=== PATIENT | male | born 1985 | race Caucasian/White ===

== ENCOUNTER 2018-04-15 10:01 | Day surgery (SDC) | payer MEDICAID ==
[2018-04-09 10:09] VITALS: BMI 22.8
[2018-04-15] MEDS ORDERED: Midazolam 2 MG/2 ML VIAL ONE (11:43)
[2018-04-15] MEDS ORDERED: Propofol 10 mg/ml Inj (20 ML) ONE ×2 (11:43→12:13)
[2018-04-15] MEDS ORDERED: Lidocaine/Epinephrine 1% 1:100000 10 ML IJ ONE (12:13)
[2018-04-15] MEDS ORDERED: Bupivacaine 0.25% 20 ML INJ IJ ONE (12:13)
[2018-04-15] MEDS ORDERED: ceFAZolin IV 1 gm in Dextrose 1 GM/50 ML BAG IVPB ONE (12:13)
[2018-04-15] MEDS ORDERED: HYDROmorphone 0.5 mg/0.5 ml ISec IVP PRN (13:28)
--- NOTE | 2018-04-15 13:38 | PCM.SURG1 ---
Surgeon's Initial Post Op Note - Surgeon's Notes Surgeon: Luis Castings Drafter: Itzel PGY4 Type of Anesthesia: General LMA Pre-Operative Diagnosis: R axillary sebaceous cyst Operative Findings: 1 sebaceous cyst and 1 mass Post-Operative Diagnosis: axillary sebaceous cyst and mass Operation Performed: excision of mass and cyst Specimen/Specimens Removed: mass and cyst Estimated Blood Loss: EBL {In ML}: 20 Blood Products Given: N/A Drains Used: John Vilchis Post-Op Condition: Good Date of Surgery/Procedure: 04/15/18 Time of Surgery/Procedure: 13:38
[2018-04-15 15:40] VITALS: RESP 16
[2018-04-15 15:44] VITALS: TEMP 97.7
[2018-04-15 16:43] VITALS: BP 119/64; PULSE 62; O2SAT 97
--- NOTE | 2018-04-16 01:16 | OP ---
PROCEDURE DATE: 04/15/2018 PREOPERATIVE DIAGNOSES: 1. Large sebaceous cyst of right axilla. 2. Small sebaceous cyst of the posterior right axillary area. POSTOPERATIVE DIAGNOSES: 1. Hidradenitis of right axillary area, approximately 5 x 6 cm size. 2. Sebaceous cyst of the posterior axillary area on right side, 2 x 2 cm size. PROCEDURES DONE: 1. Right local excision of hidradenitis of right axillary area. 2. Excision of the sebaceous cyst of the right posterior axillary area 2 x 2 cm size. 3. Excision of the redundant skin of the right axilla. SURGEON: Nghia Smith MD SITE DAMAGE PREVENTION TECHNICIAN: Gomez Robbins DO, PGY-4 resident. ANESTHESIA: General endotracheal tube anesthesia. ESTIMATED BLOOD LOSS: Around 30 mL. DRAINS: 7-[place] CECILY drain was placed. COMPLICATIONS: None. PATHOLOGY: 1. Hidradenitis of right axillary area. 2. Sebaceous cyst of the right axillary area. 3. Redundant excised infected skin. INTRAOPERATIVE FINDINGS: The patient had approximately 5 x 6 cm thickened right axillary area as well as 2 x 2 cm posterior right axillary area sebaceous cyst, and the patient had redundant thickened infected skin that was also excised. DESCRIPTION OF PROCEDURE: On intraoperative steps, this is a 33-year-old male, who was diagnosed with possible sebaceous cyst of the right axilla, possible hidradenitis, and the patient had at two different areas, and the patient was consented for the excision of the sebaceous cyst of the right axillary area as well as a small sebaceous cyst excision, brought to the OR, placed supine on the operating table. After induction of the anesthesia, the right axilla and chest were prepped and draped in the usual sterile fashion. An elliptical incision was made surrounding the large axillary cyst area. After incising the skin and subcutaneous tissue, it was realized that the patient has a hidradenitis and then now the hidradenitis area was completely excised. The patient also had redundant skin that was infected on the surrounding areas as well as a thickened skin. The surrounding skin area was excised on both sides and it was sent off the table for the pathology. The hemostasis was achieved and the patient had sebaceous cyst of the right posterior axillary area of approximately 2 x 2 cm size that was excised after an elliptical incision. The cyst was completely excised and it was sent off the table for the pathology. Hemostasis was achieved. Due to the wide excision area, the upper and lower medial and lateral flap was created, CECILY drain was placed; and the wound was closed in 2 layers; the subcu with 2-0, 3-0 Vicryl; and the skin with 3-0 nylon interrupted suture. The sebaceous cyst area was also closed with 2-0 Vicryl and the skin with 3-0 nylon interrupted suture and dry sterile dressing was applied. The patient tolerated the procedure well. Count of instruments and gauze was correct. There was no apparent complication. The patient was extubated in the OR and sent to the postanesthesia care unit in stable condition. Nghia Smith MD IVAN
== END 2018-04-15 16:30 | disposition home or self-care (01) ==
LOC: C.SDS 10:01
PROVIDERS: ATTEND Surgery Surgical Critical Care
DX: L72.3 Sebaceous cyst (principal); L73.9 Follicular disorder, unspecified; L72.0 Epidermal cyst; L73.2 Hidradenitis suppurativa
CPT/HCPCS: 11402; 11450; 88305; J0690; J1100; J1170; J1885; J2001; J2250; J2405; J2704; J3010

== ENCOUNTER 2018-04-17 08:37 | Emergency (ER) | payer MEDICAID ==
[2018-04-17 08:37] VITALS: BMI 22.8
[2018-04-17 08:52] VITALS: O2SAT 98
[2018-04-17] MEDS ORDERED: Sodium Chloride 0.9% 1,000 ML IV ONE (09:13)
[2018-04-17] MEDS ORDERED: Sodium Chloride 0.9% 1,000 ML ONE (09:26)
[2018-04-17 09:28] LABS: BASO # 0.1 K/uL (0.0-0.2); BASO % 0.6 % (0.0-2.0); EOS # 0.1 K/uL (0.0-0.7); HEMOGLOBIN 13.8 g/dL (12.0-18.0); LYMPH # 7.3 K/uL (1.0-4.3); LYMPH % 52.6 % (20.0-40.0); MEAN CELL VOLUME 98.2 fL (80.0-94.0); MEAN CORPUSCULAR HEMOGLOBIN 33.1 pg (27.0-31.0); MEAN CORPUSCULAR HGB CONC 33.7 g/dL (33.0-37.0); MEAN PLATELET VOLUME 7.6 fL (7.2-11.7); MONO # 0.9 K/uL (0.0-0.8); MONO % 6.5 % (0.0-10.0); NEUT # 5.4 K/uL (1.8-7.0); NEUT % 39.3 % (50.0-75.0); RBC 4.18 Mil/uL (4.40-5.90); RED CELL DISTRIBUTION WIDTH 13.7 % (11.5-14.5); WHITE BLOOD COUNT 13.8 K/uL (4.8-10.8)
--- NOTE | 2018-04-17 09:44 | C.PDOC ---
History Of Present Illness 33 y/o male presents to the ER complaining of nausea, vomiting, and headache which began when he woke up this morning. Patient states that he had a sebaceous cyst of the right axilla removed by Dr. Chavez on 04/15/18. He was discharged with Percocet and Augmentin. He notes that he only take 1 tablet of Percocet last night, he has not previously used this medication. Patient denies fever, chills, chest pain, SOB, abdominal pain or other complaints at this time. Time Seen by Provider: 04/17/18 08:49 Chief Complaint (Nursing): Fever History Per: Patient History/Exam Limitations: no limitations Onset/Duration Of Symptoms: Hrs Current Symptoms Are (Timing): Still Present Associated Symptoms: Nausea, Vomiting Severity: Moderate Past Medical History Reviewed: Historical Data, Nursing Documentation, Vital Signs Vital Signs: Last Vital Signs Temp 98.5 F 04/17/18 10:39 Pulse 64 04/17/18 10:39 Resp 18 04/17/18 10:39 BP 113/65 04/17/18 10:39 Pulse Ox 98 04/17/18 11:18 - Medical History PMH: No Chronic Diseases Other Surgeries: Hx of surgeries - [facility] Procedures OTHER SKIN & SUBQ I D (02/24/14) Family History: States: No Known Family Hx - Social History Hx Tobacco Use: Yes Hx Alcohol Use: No Hx Substance Use: Yes - Immunization History Hx Tetanus Toxoid Vaccination: No Hx Influenza Vaccination: No Hx Pneumococcal Vaccination: No Review Of Systems Constitutional: Negative for: Fever, Chills Cardiovascular: Negative for: Chest Pain Respiratory: Negative for: Cough, Shortness of Breath Gastrointestinal: Positive for: Nausea, Vomiting. Negative for: Abdominal Pain , Diarrhea Neurological: Positive for: Headache. Negative for: Weakness, Numbness, Incoordination, Altered Mental Status, Dizziness Physical Exam - Physical Exam Appears: Well, Non-toxic, Other (mildly uncomfortable) Skin: Normal Color, Warm, Dry, No Rash Head: Normacephalic Eye(s): bilateral: Normal Inspection Oral Mucosa: Moist Neck: Supple Cardiovascular: Rhythm Regular Respiratory: Normal Breath Sounds, No Rales, No Rhonchi, No Wheezing Gastrointestinal/Abdominal: Normal Exam, Bowel Sounds, Soft, No Tenderness Extremity: Other (right axilla- surgical dressing in place, and CECILY drain present with serosanguineous fluid inside, no purulence) Neurological/Psych: Oriented x3 Gait: Steady ED Course And Treatment - Laboratory Results Result Diagrams: 04/17/18 09:22 04/17/18 09:22 O2 Sat by Pulse Oximetry: 98 (RA) Pulse Ox Interpretation: Normal Progress Note: Blood work ordered and reviewed. Patient given IV Zofran, IV pepcid, IV toradol and IV NS bolus. 10:15- Surgery resident aware and will come down and evaluate patient. Reevaluation Time: 11:15 Reassessment Condition: Improved (On reassessment, patient is resting comfortably and states he feels much better. Symptoms likely a Percocet side effect. Patient instructed to continue his Augmentin (take with food) and to use tylenol/motrin as needed for pain unless pain is severe. He was instructed to follow up with his surgeon as scheduled, and understands he should return to ED if symptoms return/worsen.) - Physician Consult Information Physician Contacted: Gomez Robbins Outcome Of Conversation: Patient evaluated in ED by surgery resident, ok to d/c. Disposition Counseled Patient/Family Regarding: Studies Performed, Diagnosis, Need For Followup, Rx Given - Disposition Referrals: Nghia Smith MD [Staff Provider] - Cheryl Cagle MD [Staff Provider] - Disposition: HOME/ ROUTINE Disposition Time: 11:15 Condition: STABLE Additional Instructions: FOLLOW UP WITH YOUR SURGEON SCHEDULED CONTINUE ANTIBIOTICS UNTIL FINISHED USE IBUPROFEN OR TYLENOL NEEDED FOR PAIN RETURN TO ER IF YOU HAVE ANY CONCERNING SYMPTOMS Instructions: Adverse Drug Reactions, Adult (DC) Forms: [employer] (Iraqi) Print Language: PANAMANIAN - Clinical Impression Clinical Impression: Nausea, Headache, Medication side effect - Scribe Statement The provider has reviewed the documentation as recorded by the Orly Boogie Provider Attestation: All medical record entries made by the Scribe were at my direction and personally dictated by me. I have reviewed the chart and agree that the record accurately reflects my personal performance of the history, physical exam, medical decision making, and the department course for this patient. I have also personally directed, reviewed, and agree with the discharge instructions and disposition.
[2018-04-17 09:47] LABS: ALB/GLOB RATIO 1.4 (1.0-2.1); ALBUMIN 3.9 g/dL (3.5-5.0); ALT/SGPT 27 U/L (21-72); AST/SGOT 22 U/L (17-59); BLOOD UREA NITROGEN 9 mg/dL (9-20); GFR AFRICAN-AMERICAN > 60; GFR NON-AFRICAN AMERICAN > 60
[2018-04-17 10:41] VITALS: BP 113/65; PULSE 64; RESP 18; TEMP 98.5
--- NOTE | 2018-04-23 21:52 | CP.PCM.CON ---
<Gomez Robbins - Last Filed: 04/23/18 22:00> History of Present Illness - History of Present Illness History of Present Illness: Surgery: Dr. Smith CC: Wound check HPI: 33M w. recent sebaceous cyst excision of 04/15 presented to ED after taking percocet for pain and becoming ill. Pt had N/V denies F/C. Surgery was paged to assess surgical site. PMH: none PSH: R axilla sebaceous cyst excision Meds: MAR reviewed NKDA Social: +tobacco, no ETOH, no drugs Fhx: non-contributory Review of Systems - Review of Systems All systems: reviewed and no additional remarkable complaints except (HPI) Past Patient History - Past Medical History & Family History Past Medical History?: No - Past Social History Smoking Status: Light Smoker < 10 Cigarettes Daily - PULMONARY Hx Respiratory Disorders: No - NEUROLOGICAL Hx Neurological Disorder: No - HEENT Hx HEENT Problems: No - RENAL Hx Chronic Kidney Disease: No - ENDOCRINE/METABOLIC Hx Endocrine Disorders: No - HEMATOLOGICAL/ONCOLOGICAL Hx Blood Disorders: No - INTEGUMENTARY Hx Dermatological Problems: Yes Other/Comment: cyst right axilla - MUSCULOSKELETAL/RHEUMATOLOGICAL Hx Musculoskeletal Disorders: No - GASTROINTESTINAL Hx Gastrointestinal Disorders: No - GENITOURINARY/GYNECOLOGICAL Hx Genitourinary Disorders: No - PSYCHIATRIC Hx Substance Use: Yes - SURGICAL HISTORY Hx Surgeries: Yes Other/Comment: right axilla I&D - ANESTHESIA Hx Anesthesia: No Hx Anesthesia Reactions: No Hx Malignant Hyperthermia: No Meds Allergies/Adverse Reactions: Allergies Allergy/AdvReac Type Severity Reaction Status Date / Time No Known Allergies Allergy Verified 04/23/18 12:11 Physical Exam - Constitutional Appears: Non-toxic, No Acute Distress - Head Exam Head Exam: ATRAUMATIC, NORMOCEPHALIC - Eye Exam Eye Exam: EOMI - ENT Exam ENT Exam: Mucous Membranes Moist - Neck Exam Neck exam: Positive for: Full Rom. Negative for: Lymphadenopathy - Respiratory Exam Respiratory Exam: NORMAL BREATHING PATTERN. absent: Accessory Muscle Use, Respiratory Distress - GI/Abdominal Exam GI & Abdominal Exam: Soft. absent: Tenderness - Extremities Exam Additional comments: R axilla drain in place, scant serosang drainage, incision C/D/I - Neurological Exam Neurological exam: Alert, Oriented x3 Results - Vital Signs Recent Vital Signs: Last Vital Signs Temp 98.5 F 04/17/18 10:39 Pulse 64 04/17/18 10:39 Resp 18 04/17/18 10:39 BP 113/65 04/17/18 10:39 Pulse Ox 98 04/20/18 18:03 - Labs Result Diagrams: 04/17/18 09:22 04/17/18 09:22 Assessment & Plan - Assessment and Plan (Free Text) Assessment: 33M s/p removal of R axilla sebcaeous cyst 04/15 for follow up -Wound healing well -No interventions needed at this time -Pt to follow up with Dr. Smith -d/w attending Itzel PGY4 <Nghia Smith - Last Filed: 04/24/18 16:55> Results - Vital Signs Recent Vital Signs: Last Vital Signs Temp 98.5 F 04/17/18 10:39 Pulse 64 04/17/18 10:39 Resp 18 04/17/18 10:39 BP 113/65 04/17/18 10:39 Pulse Ox 98 04/20/18 18:03 - Labs Result Diagrams: 04/17/18 09:22 04/17/18 09:22 Attending/Attestation - Attestation I have personally seen and examined this patient.: Yes I have fully participated in the care of the patient.: Yes I have reviewed all pertinent clinical information: Yes Notes (Text): Pt was seen and examined at bedside Agree with above note and assessment Pt with need CECILY drain removal Po analgesics f.u in office c.w antibiotics Local wound care Plan d.w pt in detail Risk and benefit explained in detail.
== END 2018-04-17 11:32 | disposition home or self-care (01) ==
LOC: C.ER 08:37
DX: R11.2 Nausea with vomiting, unspecified (principal); R51 Headache; T40.2X5A Adverse effect of other opioids, initial encounter
CPT/HCPCS: 80053; 82948; 85025; 96361; 96374; 96375; 99285; J1885; J2405; J7030

== ENCOUNTER 2018-04-23 11:46 | Emergency (ER) | payer MEDICAID ==
[2018-04-23 11:46] VITALS: BMI 22.8
[2018-04-23 12:11] VITALS: BP 126/83; PULSE 86; RESP 18; TEMP 99.7; O2SAT 98
--- NOTE | 2018-04-23 13:25 | C.PDOC ---
History Of Present Illness 33 y/o M p/w axillary CECILY drain in place, requesting it to be removed. Patient had abscess that had been drained there under Dr. Dueñas, never had it removed. Denies fever, chills, significant pain but it is uncomfortable. Time Seen by Provider: 04/23/18 12:03 Chief Complaint (Nursing): Wound Check Past Medical History Vital Signs: Last Vital Signs Temp 99.7 F H 04/23/18 12:04 Pulse 86 04/23/18 12:04 Resp 18 04/23/18 12:04 BP 126/83 04/23/18 12:04 Pulse Ox 98 04/23/18 13:25 - Medical History PMH: Denies: Chronic Kidney Disease - [facility] Procedures OTHER SKIN & SUBQ I D (02/24/14) Family History: States: No Known Family Hx - Social History Hx Tobacco Use: Yes Hx Alcohol Use: No Hx Substance Use: No - Immunization History Hx Tetanus Toxoid Vaccination: No Hx Influenza Vaccination: No Hx Pneumococcal Vaccination: No Review Of Systems Except As Marked, All Systems Reviewed And Found Negative. Constitutional: Negative for: Fever Cardiovascular: Negative for: Chest Pain Physical Exam - Physical Exam Additional Physical Exam Comments: Gen: NAD Head: NC/AT Eyes: PERRL ENT: MMM Neck: Supple Chest: No tenderness CV: Regular rate Lungs: CTA b/l Abd: Soft, NT Back: No CVA tenderness Extremities: No edema Skin: Axillary CECILY drain in place without discharge or erythema Neuro: Alert, no focal deficit ED Course And Treatment O2 Sat by Pulse Oximetry: 98 Medical Decision Making Medical Decision Making: Drain removed by residential concierge. Follow up with Dr. Smith. Disposition - Disposition Referrals: Nghia Smith MD [Staff Provider] - Disposition: HOME/ ROUTINE Disposition Time: 13:25 Condition: STABLE Instructions: Wound Care Forms: [employer] (Albanian) - Clinical Impression Clinical Impression: John leblanc drain site pain
== END 2018-04-23 13:31 | disposition home or self-care (01) ==
LOC: C.ER 11:46
DX: T85.848A Pain due to other internal prosthetic devices, implants and grafts, initial encounter (principal); Y84.8 Other medical procedures as the cause of abnormal reaction of the patient, or of later complication, without mention of misadventure at the time of the procedure; Y92.89 Other specified places as the place of occurrence of the external cause

== ENCOUNTER 2018-10-10 14:20 | Outpatient (CLI) | payer MEDICAID | END 2018-10-10 14:21 | disposition home or self-care (01) | LOC: C.RADH 14:20 ==